=== PATIENT | male | born 1970 | race Caucasian/White ===

== ENCOUNTER 2017-09-07 05:21 | Emergency (ER) | payer OTHER ==
[2017-09-07 06:03] LABS: BASO % 1 % (0-3); EOS # 0.2 x10^3/uL (0.0-0.7); EOS % 3 % (0-3); HEMATOCRIT 44.4 % (39.0-53.0); HEMOGLOBIN 15.7 g/dL (13.0-17.5); LYMPH # 2.2 x10^3/uL (1.0-4.8); LYMPH % 34 % (24-48); MEAN CORPUSCULAR HEMOGLOBIN 31 pg (25-35); MEAN CORPUSCULAR HGB CONC 35 g/dL (31-37); MEAN CORPUSCULAR VOLUME 87 fL (79-100); MONO # 0.3 x10^3/uL (0.0-1.1); MONO % 5 % (0-9); NEUT # 3.7 x10^3uL (1.8-7.7); NEUT % 57 % (31-73); PLATELET COUNT 226 x10^3/uL (140-400); RED BLOOD COUNT 5.08 x10^6/uL (4.30-5.70); RED CELL DISTRIBUTION WIDTH 12.8 % (11.5-14.5); WHITE BLOOD COUNT 6.5 x10^3/uL (4.0-11.0)
--- NOTE | 2017-09-07 06:03 | EKG ---
[address] [address] Test Date: 2017-09-07 Test Time: 05:56:32 Pat Name: VIRAJ JORDYN Department: Room: Gender: M [employer]: : 1970 Requested By: LYNDA FARAH Order Number: [id number] Reading MD: Measurements Intervals [place] Rate: 72 P: 41 NE: 210 QRS: -2 QRSD: 86 T: 10 QT: 374 QTc: 411 Interpretive Statements SINUS RHYTHM LEFTWARD AXIS OTHERWISE NORMAL ECG RI6.01 No previous ECG available for comparison
--- NOTE | 2017-09-07 06:16 | PHYS DOC ---
Past History Past Medical History: Other Past Surgical History: Other Alcohol Use: None Drug Use: None Adult General Chief Complaint Chief Complaint: CHEST PAIN HPI HPI The patient is a pleasant 47-year-old male presents for evaluation of 5 days of right upper back pain. He states that he was recently camping and was sleeping in a hammock. He says the pain began gradually and is progressively worsening. He's been taking Tylenol at home which she states typically treats all of his pain complaints but it has not been helping. He denies a pleuritic component to the pain and is able to take deep breaths without difficulty. He is having difficulty describing his symptoms but states that he feels like he just ran out in smog. He is a former smoker who smoked for about 13 years. He is not prescribed any medications currently. He denies any anterior chest pain at this time. He is alert and oriented 4, calm, and appears to be in no distress. He has been coughing lately. He denies fevers or chills, diaphoresis, hemoptysis, dizziness, syncope, abdominal pain, weight loss, nausea or vomiting. He denies any significant cardiac family history. Review of Systems Review of Systems Constitutional: Denies fever or chills [] Eyes: Denies change in visual acuity, redness, or eye pain [] HENT: Denies nasal congestion or sore throat [] Respiratory: Denies cough or shortness of breath [] Cardiovascular: No additional information not addressed in HPI [] GI: Denies abdominal pain, nausea, vomiting, bloody stools or diarrhea [] : Denies dysuria or hematuria [] Musculoskeletal: Denies back pain or joint pain [] right upper back pain Integument: Denies rash or skin lesions [] Neurologic: Denies headache, focal weakness or sensory changes [] Endocrine: Denies polyuria or polydipsia [] All other systems were reviewed and found to be within normal limits, except as documented in this note. Allergies Allergies Allergies Coded Allergies Type Severity Reaction Last Updated Verified No Known Drug Allergies 09/07/17 No Physical Exam Physical Exam Constitutional: Well developed, well nourished, no acute distress, non-toxic appearance. [] HENT: Normocephalic, atraumatic, bilateral external ears normal, oropharynx moist, no oral exudates, nose normal. [] Eyes: PERRLA, EOMI, conjunctiva normal, no discharge. [] Neck: Normal range of motion, no tenderness, supple, no stridor. [] Cardiovascular:Heart rate regular rhythm, no murmur [] Lungs & Thorax: Bilateral breath sounds clear to auscultation [] Abdomen: Bowel sounds normal, soft, no tenderness, no masses, no pulsatile masses. [] Skin: Warm, dry, no erythema, no rash. [] Back: No tenderness, no CVA tenderness. [] right upper back pain is just inferior to right scapula however this area is not tender, pt reports this is the correct locations but the pain feels "deeper" Extremities: No tenderness, no cyanosis, no clubbing, ROM intact, no edema. [] Neurologic: Alert and oriented X 3, normal motor function, normal sensory function, no focal deficits noted. [] Psychologic: Affect normal, judgement normal, mood normal. [] Current Patient Data Vital Signs Vital Signs Date Time Temp Pulse Resp B/P (MAP) Pulse Ox O2 Delivery O2 Flow Rate FiO2 09/07/17 06:05 75 16 145/95 (112) 95 Room Air 09/07/17 05:23 97.9 Lab Results Laboratory Tests Test 09/07/17 05:39 White Blood Count 6.5 x10^3/uL (4.0-11.0) Red Blood Count 5.08 x10^6/uL (4.30-5.70) Hemoglobin 15.7 g/dL (13.0-17.5) Hematocrit 44.4 % (39.0-53.0) Mean Corpuscular Volume 87 fL (79-100) Mean Corpuscular Hemoglobin 31 pg (25-35) Mean Corpuscular Hemoglobin Concent 35 g/dL (31-37) Red Cell Distribution Width 12.8 % (11.5-14.5) Platelet Count 226 x10^3/uL (140-400) Neutrophils (%) (Auto) 57 % (31-73) Lymphocytes (%) (Auto) 34 % (24-48) Monocytes (%) (Auto) 5 % (0-9) Eosinophils (%) (Auto) 3 % (0-3) Basophils (%) (Auto) 1 % (0-3) Neutrophils # (Auto) 3.7 x10^3uL (1.8-7.7) Lymphocytes # (Auto) 2.2 x10^3/uL (1.0-4.8) Monocytes # (Auto) 0.3 x10^3/uL (0.0-1.1) Eosinophils # (Auto) 0.2 x10^3/uL (0.0-0.7) Basophils # (Auto) 0.0 x10^3/uL (0.0-0.2) EKG EKG NSR, rate of 65, LAD present, T wave inversion noted in III, no acute ischemic findings noted, no STEMI Radiology/Procedures Radiology/Procedures CXR (prelim): no acute cardiopulmonary pathology noted, no PTX, no infiltrate, no mediastinal widening, no pleural effusion, no displaced rib fracture seen Course & Med Decision Making Course & Med Decision Making Pertinent Labs and Imaging studies reviewed. (See chart for details) @0743 - patient and updated on lab and imaging results which are unremarkable. The patient states he is able to sleep after the Toradol injection and is feeling much better. The patient's pain does not seem to be cardiac in origin and does seem to be muscular skeletal. It did start after sleeping on a hammock and is somewhat positional. We'll send the patient home with a prescription of Toradol and Valium to be used when necessary. No concerning EKG findings noted at this time. Advised patient to follow up with his primary care physician within the next 1-2 days. Advised the patient that having a stress test is a good idea within the next few weeks. Workup fails to reveal any emergent pathology. The patient is stable for discharge at this time. Dragon Disclaimer Dragon Disclaimer This electronic medical record was generated, in whole or in part, using a voice recognition dictation system. Departure Departure: Impression: Primary Impression: Right-sided back pain Disposition: HOME, SELF-CARE Condition: STABLE Referrals: DUNG BOUCHER DO (PCP) Patient Instructions: Back Exercises, Back Injury Prevention, Back Pain, Adult Additional Instructions: Take the prescribed medicine as directed, as needed. Follow-up with your physician in the next 1-2 days. Return to the emergency Department immediately for new or worsening symptoms. Scripts Diazepam (VALIUM) 2 Mg Tablet 2 MG PO TID PRN for MUSCLE SPASMS, #15 TAB Prov: NALINI HARRELL DO 09/07/17 Ketorolac Tromethamine (KETOROLAC TROMETHAMINE) 10 Mg Tablet 1 TAB PO TID PRN for MODERATE PAIN, #20 TAB Prov: NALINI HARRELL DO 09/07/17 NALINI HARRELL DO Sep 07, 2017 06:16
[2017-09-07 06:18] LABS: ALBUMIN/GLOBULIN RATIO 1.1 (1.0-1.7); CALCIUM 8.9 mg/dL (8.5-10.1); CREATININE 1.4 mg/dL (0.7-1.3); GFR 54.8; POTASSIUM 3.6 mmol/L (3.5-5.1); TOTAL BILIRUBIN 0.7 mg/dL (0.2-1.0); TOTAL PROTEIN 7.6 g/dL (6.4-8.2)
[2017-09-07] MEDS ORDERED: diazePAM 2 MG TABLET PO ONE (06:45)
[2017-09-07] MEDS ORDERED: KETOROLAC 30 MG/ML VIAL. IV ONE (06:45)
[2017-09-07] MEDS ORDERED: KETO10TA PO (07:25)
[2017-09-07] MEDS ORDERED: DIAZ2TAB PO (07:25)
--- NOTE | 2017-09-07 07:39 | RAD ---
Indication: Chest pain Technique: Upright portable chest radiograph was obtained. No comparison is available. Findings: There is mild elevation of the right hemidiaphragm. The lungs are clear. The cardiopulmonary silhouette is within normal limits. Bony structures are intact. Impression: No acute thoracic findings. Electronically signed by: Jean-Paul Tejeda MD (09/07/2017 7:36 AM) [facility]
[2017-09-07 08:52] VITALS: BP 128/91
== END 2017-09-07 08:00 | disposition home or self-care (01) ==
LOC: ER 05:21
DX: M54.6 Pain in thoracic spine (principal); Z87.891 Personal history of nicotine dependence
CPT/HCPCS: 36415; 71045; 80053; 82553; 83880; 84484; 85025; 85379; 85730; 93005; 96374; 99285; J1885